=== PATIENT | male | born 1950 | race Two or more races ===

== ENCOUNTER 2021-01-17 19:14 | Emergency (ER) | payer OTHER ==
[~2021-01-17] VITALS: Ht 165.1 cm; Wt 72.6 kg
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
[2021-01-17 21:37] VITALS: BP 156/98
--- NOTE | 2021-01-17 21:37 | NUR ---
Patient discharged to home in stable condition. Written and verbal after care instructions given. Patient verbalizes understanding of instruction.
== END 2021-01-17 21:38 | disposition home or self-care (01) ==
LOC: ER 19:19
DX: S99.912A Unspecified injury of left ankle, initial encounter (principal); J06.9 Acute upper respiratory infection, unspecified; V49.49XA Driver injured in collision with other motor vehicles in traffic accident, initial encounter; Y93.89 Activity, other specified; Y92.413 State road as the place of occurrence of the external cause; Y99.8 Other external cause status
CPT/HCPCS: 71250-TC; 72125-TC; 73610-TC